=== PATIENT | male | born 1950 | race Caucasian/White ===

== ENCOUNTER 2023-11-29 06:40 | Emergency (ER) | payer OTHER ==
[~2023-11-29] VITALS: Ht 182.9 cm; Wt 53.1 kg
[2023-11-29 07:43] VITALS: BP 171/120
[2023-11-29] MEDS ORDERED: Lidocaine 2% Jelly Uro-Jet TOP ONE (07:50)
[2023-11-29 08:14] LABS: Source, Urine Clean Catch
[2023-11-29 08:27] LABS: Appearance, Urine Clear (Clear); Bilirubin, Urine Neg (Neg); Blood, Urine 1+ (Neg); Color, Urine Yellow (P-Yellow); Glucose Qualitative, Urine Neg (Neg); Ketones, Urine Neg (Neg); Leukocyte Esterase, Urine Neg (Neg); Nitrite, Urine Neg (Neg); Protein, Urine Neg (Neg); Specific Gravity, Urine 1.025 (1.003-1.022); Urobilinogen, Urine NORM (Normal)
[2023-11-29 08:34] LABS: Bacteria Rare /hpf; Squamous Epithelial Cells Not Seen /hpf (Few); White Blood Cells, Urine Not Seen /hpf (0-5)
== END 2023-11-29 08:21 | disposition home or self-care (01) ==
LOC: ER 06:40
PROVIDERS: Physician Assistant
DX: R33.9 Retention of urine, unspecified (principal); R10.84 Generalized abdominal pain; Z96.0 Presence of urogenital implants
CPT/HCPCS: 51702; 81001; 99283-25

== ENCOUNTER 2025-06-30 10:01 | Day surgery (SDC) | payer OTHER ==
[~2025-06-30] VITALS: Ht 185.4 cm; Wt 90.6 kg
[2025-06-30] VITALS (15 sets, daily range): BP systolic 108–153; BP diastolic 69–92
[~2025-06-30 10:01] MED LIST: ACET500 PO; ATOR10 PO; GABA400 PO; IBUP200 PO; LISI10 PO; MELO7.5 PO; Norco 5-325 Ta1 EACH PO; OXYC5 PO; TAMS.4ER PO
[2025-06-30] MEDS ORDERED: Tranexamic Acid 100 ML IV SCH (10:25)
[2025-06-30] MEDS ORDERED: Chlorhexidine Mouth Care 15 ML UDC MT SCH (10:25)
[2025-06-30] MEDS ORDERED: Ropivacaine 0.5% HCl/Pf 123.125 MG,EPINEPHrine HCL 0.25 MG,Ketorolac Tromethamine 15 MG... INFIL SCH (10:25)
[2025-06-30] MEDS ORDERED: CeFAZolin Sodium 2,000 MG in NS 100 ML IV SCH ×2 (10:25→22:20)
[2025-06-30] MEDS ORDERED: CeFAZolin Sodium 2,000 MG VIAL ONE (10:46)
--- NOTE | 2025-06-30 11:40 | NUR ---
Ambulatory in Day Surgery WITH CANE. ABLE TO USE RESTROOM INDEPENDENTLY. History, Chart, Medications and Allergies reviewed before start of procedure. Patient confirms NPO status and agrees with scheduled surgery. Patient States Post-Procedure ride home has been arranged [place]. Pre-Op teaching done. Pt verbalizes understanding. GLASSES TO BE PLACED IN PACU WITH PT BREWMASTER THEM. ALL OTHER BELONGINGS INCLUDING CANE PLACED UNDER GURN.
[2025-06-30] MEDS ORDERED: FentaNYL Citrate 50 MCG/ML 2 ML Injection ONE (12:31)
[2025-06-30] MEDS ORDERED: Midazolam HCl 1MG / ML 2ML Vial ONE (12:31)
[2025-06-30] MEDS ORDERED: Ondansetron HCl 2 MG / ML 2ML Vial IV PRN ×2 (12:40→14:35)
[2025-06-30] MEDS ORDERED: Albuterol 2.5 MG/3 ML VIAL INH PRN (12:40)
[2025-06-30] MEDS ORDERED: FentaNYL Citrate 50 MCG/ML 2 ML Injection IV PRN ×2 (12:40→12:45)
[2025-06-30] MEDS ORDERED: Prochlorperazine Edisylate 10 mg Vial IV PRN ×2 (12:40→14:40)
[2025-06-30] MEDS ORDERED: HYDROmorphone HCl/Pf 1MG SYR IV PRN ×3 (12:45→14:40)
[2025-06-30] MEDS ORDERED: Dexamethasone Sod Phos 10 MG/ML 1ML VIAL ONE (14:10)
[2025-06-30] MEDS ORDERED: Metoclopramide HCl 5MG / ML 2ML Vial IV PRN (14:30)
[2025-06-30] MEDS ORDERED: Magnesium Hydroxide Conc 10 ML UDC PO PRN (14:35)
[2025-06-30] MEDS ORDERED: FLU VACC TS2025-26(6MOS UP)/PF 45 MCG/0.5 ML SYRINGE IM SCH (14:40)
--- NOTE | 2025-06-30 17:00 | NUR ---
ARRIVAL TO UNIT PT IS A/OX4. TOLERATING PO INTAKE. CALL LIGHT IN REACH AND EXPLAINED. MINIMAL SENSATION DUE TO SPINAL. IN ROOM. DRESSING IS C/D/I.
[2025-06-30] MEDS ORDERED: Ketorolac Tromethamine 15mg Vial IV SCH (18:00)
[2025-06-30] MEDS ORDERED: OXYC5 PO (18:19)
[2025-06-30] MEDS ORDERED: ASPI81CH PO (18:19)
--- NOTE | 2025-07-01 04:26 | NUR ---
SHIFT SUMMARY AMELIA WAS ALERT AND FULLY ORIENTED ON ASSESSMENT. PT WAS UNABLE TO VOID EARLY IN SHIFT, BUT LATER WAS ABLE TO PRODUCE SPONTANEOUS VOID. CIRCULATION/ SENSATION TO BLE'S INTACT. PAIN WELL CONTROLLED. PT AMBULATING WELL W/ SBA. PT DENIES SOB, CHEST PAIN, OR NAUSEA. NO ACUTE EVENTS TONIGHT. NO OTHER CHANGES NOTED. PT WILL DISCHARGE IN AM.
[2025-07-01 05:16] VITALS: BP 131/59
[2025-07-01 05:27] LABS: BASOPHILS ABSOLUTE AUTO 0.01 K/mm3 (0.00-0.23); BASOPHILS PERCENT AUTO 0 % (0-2); EOSINOPHILS ABSOLUTE AUTO 0.00 K/mm3 (0.00-0.68); EOSINOPHILS PERCENT AUTO 0 % (0-6); Hematocrit 34.8 % (37.0-53.0); Hemoglobin 11.9 g/dL (13.5-17.5); IMMATURE GRAN ABSOLUTE AUTO 0.03 K/mm3 (0.00-0.10); IMMATURE GRAN PERCENT AUTO 0 % (0-1); LYMPHOCYTES ABSOLUTE AUTO 0.97 K/mm3 (0.84-5.20); LYMPHOCYTES PERCENT AUTO 9 % (21-46); MONOCYTES ABSOLUTE AUTO 0.56 K/mm3 (0.16-1.47); MONOCYTES PERCENT AUTO 5 % (4-13); Mean Corpuscular HGB Conc 34.2 g/dL (31.5-36.5); Mean Corpuscular Volume 92 fL (80-100); NEUTROPHILS ABSOLUTE AUTO 9.58 K/mm3 (1.96-9.15); NEUTROPHILS PERCENT AUTO 86 % (41-73); NRBC ABSOLUTE 0.00 K/mm3 (0.00-0.02); NRBC Auto 0.0 /100 WBC (0.0-0.2); Platelet Count 151 K/mm3 (150-400); RDW Coefficient Variation 12.4 % (11.7-14.2); RDW Standard Deviation 41.5 fL (35.1-46.3)
[2025-07-01 05:50] LABS: Anion Gap 7.0 mmol/L (3-11); Blood Urea Nitrogen 22.0 mg/dL (8-24); CO2, Blood 27.0 mmol/L (21-32); Calcium, Blood 8.6 mg/dL (8.5-10.1); Chloride, Blood 106.0 mmol/L (98-108); Creatinine, Blood 0.84 mg/dL (0.60-1.20); Glucose, Blood 184.0 mg/dL (70-99); Magnesium, Blood 2.1 mg/dL (1.6-2.4); Potassium, Blood 4.7 mmol/L (3.5-5.5); Sodium, Blood 135.0 mmol/L (136-145)
[2025-07-01 07:03] VITALS: BP 140/72
--- NOTE | 2025-07-01 09:07 | NUR ---
DISCHARGE NOTE PT IS A/OX4. SBA W/ FWW. IV REMOVED. WORKED WITH PHYSICAL THERAPY. PT VERBALIZED UNDERSTANDING OF DC INSTRUCTION. DRESSING C/D/I. PERSONAL BELONGINGS PACKED. AWAITING RIDE. TOLERATING INTAKE. VOIDING WELL.
--- NOTE | 2025-07-01 09:39 | NUR ---
ESCORTED OUT VIA WC
== END 2025-07-01 09:41 | disposition home or self-care (01) ==
LOC: ORSCMMR 10:01 → ORD 11:30 → ORSCMMR 11:30 → SURS 16:42 → ORSCMMR 22:00 → SURS 22:00 → ORSCMMR 07-01 09:41
PROVIDERS: Orthopaedic Surgery
PROC: 0SRB0JA Replacement of Left Hip Joint with Synthetic Substitute, Uncemented, Open Approach (ICD-10-PCS; principal; 2025-06-30 13:00)
DX: M16.12 Unilateral primary osteoarthritis, left hip (principal); I10 Essential (primary) hypertension; E78.5 Hyperlipidemia, unspecified; Z87.891 Personal history of nicotine dependence; Z79.899 Other long term (current) drug therapy
CPT/HCPCS: 36415; 72170; 80048; 83735; 85025; 97110; 97162; 97530; A9270; C1776; J0166; J0690; J0735; J1100; J1885; J2250; J2704; J2795; J3010; J7120